=== PATIENT | female | born 1955 | race Caucasian/White ===

== ENCOUNTER 2019-12-27 19:42 | Observation (INO) | payer BC ==
[~2019-12-27] VITALS: Ht 157.5 cm; Wt 78.5 kg
--- NOTE | ~2019-12-27 | HP ---
PATIENT: ANU GARNER MEDICAL RECORD: [id number] ACCOUNT: [id number] LOCATION:[facility].2116 : 59 ADMISSION DATE: 12/27/19 PCP: SHAE PARIS HISTORY AND PHYSICAL EXAMINATION DIAGNOSES: 1. Palpitations. 2. Paroxysmal atrial fibrillation. 3. Hypertension. 4. Hypothyroidism, on replacement. 5. Shortness of breath, dyspnea on exertion. HISTORY OF PRESENT ILLNESS: Mrs. Garner has a history of atrial fibrillation. She had a workup at earlier this year when she had an episode of atrial fibrillation. She was placed on metoprolol. Yesterday, she had new onset of palpitation, shortness of breath. This is very similar to the symptoms she had when she presented with atrial fibrillation. Previously, she was found to be in atrial fibrillation. She had a pacemaker placed as well. She was found to be in atrial fibrillation. Initially, she was given IV diltiazem as well as sotalol and Corvert and converted to sinus rhythm. She has maintained sinus rhythm. Her metoprolol was changed to sotalol. PHYSICAL EXAMINATION: CONSTITUTIONAL/GENERAL APPEARANCE: Well nourished, well developed, appears stated age. EYES: Lids and conjunctivae noninjected. No discharge. No pallor. ENT: Lips within normal limit. No cyanosis. No pallor. NECK: Carotid arteries, bilateral normal upstroke. No bruits. No thrills. No jugular venous pressure or distention. CERVICAL LYMPH NODES: Nontender. Nonenlarged. THYROID: Not enlarged. No nodules. CARDIOVASCULAR: Precordial exam, nondisplaced. No heaves or pericardial thrills. Rate and rhythm, regular. Heart sounds, normal S1, normal S2. No S3, no gallop, no rub. Systolic murmur, not heard. Diastolic murmur, not heard. RESPIRATORY: Respiratory effort, unlabored. Normal curvature. No thoracic deformity. No chest wall tenderness. Percussion, resonant. Auscultation, clear. No wheezes, no rales, no rhonchi. ABDOMEN: Soft, nondistended, nontender. No abdominal pain, no vomiting and normal appetite. MUSCULOSKELETAL: No joint tenderness, normal gait, normal tone. SKIN: Warm and dry. OVERALL IMPRESSION: Paroxysmal atrial fibrillation. She underwent a workup for ischemic heart disease with cardiac catheterization over at which was negative for any significant coronary disease. At this time, we would just change the metoprolol to sotalol. No other cardiac workup or treatment is necessary. TRANSINT:[id number] Voice Confirmation ID: [id number] DOCUMENT ID: [id number] HISTORY AND PHYSICAL [id number] ANU GARNER JEFFREY MD CC: [id number] DICTATION DATE: 12/28/19 1033 STAMP REDEMPTION CLERK: 12/28/19 1408 ADM IN [id number] [place] [address]
--- NOTE | ~2019-12-27 | EC ---
PATIENT:ANU CHOWDHURY DATE OF SERVICE: 12/27/19 SEX: F MEDICAL RECORD: [id number] DATE OF : 59 LOCATION:D.M2 D.211 AGE OF PATIENT: 64 ADMISSION DATE: 12/27/19 REFERRING PHYSICIAN: INTERPRETING PHYSICIAN: HAIDER GALVEZ MD ECHOCARDIOGRAM REPORT ECHO CHARGES 4 ECHO COMPLETE Date: 12/28/19 CLINICAL DIAGNOSIS: AF ECHOCARDIOGRAPHIC MEASUREMENTS (adult normal given) AC root (d.<3.7cm) 2.2 cm LV Septum d (<1.2 cm> 0.9 cm Valve Excursion 1.8 cm LV Septum (systole) 1.4 cm Left Atria (s.<4.0cm> 3.2 cm LVPW d(<1.2cm) 0.9 cm RV (d.<2.3cm) 2.7 cm LVPW (sytole) 1.0 cm LV diastole(<5.6CM) 5.0 cm MV E-F(>70mm/sec) cm LV systole 4.2 cm LVOT Diameter 1.6 cm MV exc.(>10mm) cm Est.ejection fraction (50-75%) % DOPPLER: LVIT cm/sec A 70 cm/sec E 60 cm/sec LA cm/sec RVSP 23.9 mmHg LVOT 112 cm/sec AOP1/2T m/s Asc. Ao 130 cm/sec RVOT 57 cm/sec RA cm/sec PA 73 cm/sec AV Gradient Peak 6.8 mmHg AV Mean 3.8 mmHg AV Area 1.6 cm MV Gradient Peak 3.8 mmHg MV Mean 2.1 mmHg MV Area cm COMMENTS: Repairer Hairspring: [facility] Nurse Administrator: 1 Dr. Galvez TAPE# PACS Pericardial Effusion N DATE OF SERVICE: 12/28/2019 FINDINGS: 1. Left ventricular chamber size is within normal limits. Left ventricular systolic function is normal at 55%. 2. Left atrium is within normal limits. Right atrium and right ventricular chamber sizes are within normal limits. 3. Valvular structures have normal structure and motion. 4. Doppler interrogation reveals moderate aortic insufficiency, mild mitral regurgitation, mild tricuspid regurgitation, no other valvular insufficiency or ECHOCARDIOGRAM REPORT [id number] ANU CHOWDHURY stenosis. Pulmonary systolic pressure is estimated at 24 mmHg. 5. No evidence of pericardial effusion or left ventricular thrombus. TRANSINT:[id number] Voice Confirmation ID: [id number] DOCUMENT ID: [id number] HAIDER GALVEZ MD CC: [id number] DICTATION DATE: 12/28/19 140 BUSINESS PERFORMANCE ADVISOR: 12/28/192243 DIS IN 12/28/19 [facility] [address] [id number]
--- NOTE | ~2019-12-27 | DS ---
PATIENT:ANU GARNER :59 MEDICAL RECORD: [id number] DISCHARGE SUMMARY ADMISSION DATE: 12/27/19 DISCHARGE DATE: 12/28/19 DISCHARGE DIAGNOSES: 1. Paroxysmal atrial fibrillation. 2. Sick sinus syndrome. 3. Status post pacemaker. 4. Palpitations. 5. Shortness of breath. 6. Hypertension. 7. Hypothyroidism, on replacement. HOSPITAL COURSE: Mrs. Garner presents with paroxysmal atrial fibrillation. She was given Corvert and converted to sinus rhythm. Her metoprolol was changed to sotalol. She maintained sinus rhythm. Will follow up with Dr. Reina or [facility] in 1 month. TRANSINT:[id number] Voice Confirmation ID: [id number] DOCUMENT ID: [id number] HAIDER CHE MD CC: [id number] DICTATION DATE: 12/28/194 MAJOR CASE DETECTIVE: 12/29/19 0825 DIS IN 12/28/19 [id number] [place] [address]
[2019-12-27] MEDS ORDERED: TOPROL XL50 MG PO (19:56)
[2019-12-27] MEDS ORDERED: COZAAR50 MG PO (19:57)
[2019-12-27] MEDS ORDERED: SYNTHROID25 MCG PO (19:57)
[2019-12-27 20:10] LABS: BASOPHILS 0.4 % (0-2); EOSINOPHILS 1.5 % (0-7); HEMATOCRIT 41.9 % (36.0-48.0); HEMOGLOBIN 14.5 g/dL (12-16); IMMATURE GRANULOCYTES 0.2 % (0-5); LYMPHOCYTES 35.6 % (15-50); MCH 29.7 pg (26.0-34.0); MCHC 34.6 g/dL (31.0-37.0); MCV 85.7 fL (80.0-100.0); MEAN PLATELET VOLUME 11.1 fL (7.4-10.4); MONOCYTES 4.8 % (2-11); NEUTROPHILS 57.5 % (40-80); PLATELET COUNT 160 10x3/uL (130-400); RBC 4.89 10x6/uL (4.00-5.40); RDW 13.3 % (11.5-14.5); WBC 5.4 10x3/uL (4.8-10.8)
[2019-12-27 20:19] LABS: APTT 27.9 SECONDS (22.8-39.4); INR 0.92 (0.85-1.17); PROTIME 12.3 SECONDS (11.6-15.0)
[2019-12-27 20:21] LABS: CALC OSMOLALITY 284 mosm/kg (275-300); CALCIUM 8.9 mg/dL (8.5-10.1); CARBON DIOXIDE 27.2 mmol/L (21.0-32.0); CHLORIDE - SERUM 103 mmol/L (98-107); CREATININE - SERUM 1.1 mg/dL (0.6-1.3); GLUCOSE 170 mg/dL (74-106); POTASSIUM - SERUM 3.5 mmol/L (3.5-5.1); SODIUM 140 mmol/L (136-145); UREA NITROGEN 19 mg/dL (7-18); eGFR NON AFRICAN AMERICAN 53 mL/min (90-120)
[2019-12-27 20:38] LABS: ALKALINE PHOSPHATASE 75 U/L (30-120); ALT (SGPT) 24 U/L (10-68); BILIRUBIN - TOTAL 0.52 mg/dL (0.2-1.3); CKMB 1.3 U/L (0.0-3.6); CREATINE KINASE 76 UL (21-215); MAGNESIUM - SERUM 1.8 mg/dL (1.8-2.4); PRO BNP 414 pg/mL (0-125); PROTEIN - SERUM 7.9 g/dL (6.4-8.2); TROPONIN-I < 0.017 ng/mL (0.000-0.060)
[2019-12-27 21:00] VITALS: BP 122/71
[2019-12-27 22:30] VITALS: BP 122/60
[2019-12-27 23:00] VITALS: BP 128/64
[2019-12-28] VITALS: BP 135/65
--- NOTE | 2019-12-28 00:34 | NUR ---
DR CHE VIA TELEPHONE STATES IT IS OK TO GIVE BETAPACE WITH PT CURRENT HR AND BP. SEE VITALS.
--- NOTE | 2019-12-28 00:34 | NUR ---
PT ARRIVED VIA STRETCHER. NO DISTRESS NOTED.
[2019-12-28 01:00] VITALS: BP 164/61; BMI 31.7
--- NOTE | 2019-12-28 01:17 | NUR ---
ADMISSION ASSESSMENT. HISTORY AND HOME MED LIST COMPLETED. PT STATES SHE FEELS MUCH IMPROVED. VSS. CAF PER CM HR 62. O2 2LNC. ALERT AND ORIENTED TO PERSON, PLACE AND TIME. CARLOS. IV TO RAC WITH CARDIZEM DRIP AT 10MG/HR. IV PATENT. PASSWORD GIVEN AND EXPLAINED TO PT. NON SLID SOCKS PLACED ON ON PT. SR UP X1, CALL LIGHT WITHIN REACH.
[2019-12-28 01:35] VITALS: BP 164/61
--- NOTE | 2019-12-28 04:57 | NUR ---
PACED RHYTHM PER CM HR 60. PT RESTING WITH EYES CLOSED. RESP EVEN AND REGULAR. SR UP X2, CALL LIGHT WITHIN REACH.
[2019-12-28 05:11] VITALS: BP 149/61
--- NOTE | 2019-12-28 05:54 | NUR ---
PACED RHYTHM PER CM HR 60. PT DENIED ANY DISCOMFORT DURING SHIFT. NEEDS MET; WILL CONTINUE TO MONITOR.
--- NOTE | 2019-12-28 07:15 | NUR ---
RECEIVED PT IN BED EYES CLOSED RESP UNLABORED SKIN W/D COLOR WNL NAD NOTED
[2019-12-28 09:14] VITALS: BP 139/74
[2019-12-28 10:29] VITALS: Ht 157.5 cm; Wt 78.5 kg
[2019-12-28] MEDS ORDERED: BETAPACE 80 MG80 MG PO (11:48)
[2019-12-28 12:00] VITALS: BP 137/67
--- NOTE | 2019-12-28 14:15 | NUR ---
REVEIWED DISCHARGE INSTRUCTIONS PT STATES UNDERSTANDING COPY GIVEN DCD SALINE LOCK TO RAC WITH IV CATHETER INTACT SITE FREE OF REDNESS OR EDEMA PT DISCHARGED HOME LEFT ROOM WALKING TO FATHER'S ROOM 2104 STABLE CONDITION WITH ALL PERSONAL BELONGINGS
--- NOTE | 2019-12-29 09:31 | MORECARE ---
CASE MANAGEMENT DISCHARGE SUMMARY PATIENT: ANU CHOWDHURY UNIT: [id number] ADM DATE: 12/27/19 AGE: 64 : 59 SEX: F ROOM/BED: D.2116 AUTHOR: CARMINE NINA PHYSICIAN: REFERRING PHYSICIAN: HAIDER CHE MD DATE OF SERVICE: 12/29/19 Discharge Plan Patient Name: ANU CHOWDHURY [facility] [facility] 1955 Planned Disposition: Home Anticipated Discharge Date: 12/28/19 Discharge Date: 12/28/2019 Expected LOS: 1 Initial Reviewer: [email or web address] Initial Review Date: 12/29/2019 Generated: 12/29/19 10:30 am Patient Name: ANU CHOWDHURY Page 12509 at 0931 All edits/amendments must be made on the electronic document DICTATION DATE: 12/29/19929 LOGISTICS SOLUTION MANAGER: CAMERON 12/29/19929 RPT#: [id number] DC DATE:12/28/19 STATUS: DIS IN [facility] [address] [place] [address] END OF REPORT
== END 2019-12-28 15:58 | disposition home or self-care (01) ==
LOC: D.ER 19:42 → OBSVTIME 23:06 → D.M2 23:06
PROVIDERS: Emergency Medicine; ADMIT Internal Medicine Interventional Cardiology; ATTEND Internal Medicine Interventional Cardiology
DX: I48.0 Paroxysmal atrial fibrillation (principal); I49.5 Sick sinus syndrome; R00.2 Palpitations; R06.02 Shortness of breath; I10 Essential (primary) hypertension; E03.9 Hypothyroidism, unspecified